=== PATIENT | male | born 1995 | race Two or more races ===

== ENCOUNTER 2019-05-22 19:09 | Emergency (ER) | payer MEDICAID ==
[~2019-05-22] VITALS: Ht 185.4 cm; Wt 83.9 kg
[2019-05-22] MEDS ORDERED: ADDERAL20 MG ORAL (19:20)
[2019-05-22] MEDS ORDERED: SERTRALINE HCL50 MG ORAL (19:20)
[2019-05-22 19:23] VITALS: BP 136/91
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
[2019-05-22] MEDS ORDERED: TYLENOL EXTRA500 MG ORAL (20:39)
[2019-05-22 20:45] VITALS: BP 136/91
--- NOTE | 2019-05-22 20:45 | NUR ---
ED Nurse Note: Pt cleared by health care Provider for discharge. DC instructions/prescription was given and explained to pt and verbalized understanding of teachings. All medical deviecs such as ID band removed. Pt is AAO x4, ambulatory and left with all personal belongings.
--- NOTE | 2019-05-23 09:44 | Diagnostic Imaging Report ---
Indications: Altered level of consciousness Technique: Spiral acquisitions obtained through the brain. Angled axial and coronal 5 x 5 mm slices were reconstructed. Total dose length product 1383.12 mGycm. CTDI vol(s) 70.38 mGy. Dose reduction achieved using automated exposure control Comparison: None. Findings: No acute intracranial hemorrhage or edema, mass effect, nor midline shift. Normal jay-white differentiation. Normal-sized ventricles and extra-axial CSF spaces. Intact calvarium. Visualized orbits and sinuses are unremarkable Impression: Negative This agrees with the preliminary interpretation provided overnight by Dr. Ferrell The CT scanner at [facility] is accredited by the [employer] and the scans are performed using protocols designed to limit radiation exposure to as low as reasonably achievable to attain images of sufficient resolution adequate for diagnostic evaluation.
== END 2019-05-22 20:45 | disposition home or self-care (01) ==
LOC: EDBD 19:09 → EMR 19:27
DX: S06.0X1A Concussion with loss of consciousness of 30 minutes or less, initial encounter (principal); V47.5XXA Car driver injured in collision with fixed or stationary object in traffic accident, initial encounter; Y92.410 Unspecified street and highway as the place of occurrence of the external cause; R41.2 Retrograde amnesia; F32.9 Major depressive disorder, single episode, unspecified
CPT/HCPCS: 70450; 80307; 93005; 99284